=== PATIENT | female | born 1950 | race Caucasian/White ===

== ENCOUNTER → 2018-05-01 | Outpatient (CLI) | payer OTHER | LOC: HYPER 06:40 | DX: S81.801D Unspecified open wound, right lower leg, subsequent encounter (principal); E66.01 Morbid (severe) obesity due to excess calories; D68.61 Antiphospholipid syndrome; J45.909 Unspecified asthma, uncomplicated; Z86.718 Personal history of other venous thrombosis and embolism; Z68.43 Body mass index [BMI] 50.0-59.9, adult; Z90.710 Acquired absence of both cervix and uterus; X58.XXXD Exposure to other specified factors, subsequent encounter ==

== ENCOUNTER → 2019-02-12 | Outpatient (CLI) | payer OTHER | LOC: HYPER 02-06 09:17 | DX: S81.811D Laceration without foreign body, right lower leg, subsequent encounter (principal); R60.0 Localized edema; E66.01 Morbid (severe) obesity due to excess calories; E11.59 Type 2 diabetes mellitus with other circulatory complications; D68.61 Antiphospholipid syndrome; L51.1 Stevens-Johnson syndrome; J45.909 Unspecified asthma, uncomplicated; Z79.4 Long term (current) use of insulin; Z86.718 Personal history of other venous thrombosis and embolism; Z79.01 Long term (current) use of anticoagulants; Z68.43 Body mass index [BMI] 50.0-59.9, adult; X58.XXXD Exposure to other specified factors, subsequent encounter ==